=== PATIENT | female | born 1990 | race Caucasian/White ===

== ENCOUNTER 2019-09-16 18:51 | Emergency (ER) | payer BC ==
[~2019-09-16] VITALS: Ht 185.4 cm; Wt 99.6 kg
[2019-09-16] MEDS ORDERED: NITR100C2 (19:01)
[2019-09-16] MEDS ORDERED: CYCL-707 (19:01)
[2019-09-16] MEDS ORDERED: PHEN-593 (19:01)
[2019-09-16] MEDS ORDERED: PRED10TA2 (19:01)
[2019-09-16] MEDS ORDERED: METH1TAB40 (19:01)
[2019-09-16] MEDS ORDERED: NS 1,000 ML IV ONE (21:15)
[2019-09-16] MEDS ORDERED: MORPHINE 2 MG/ML 1ML VIAL (J2270) IV ONE (21:15)
[2019-09-16] MEDS ORDERED: ISOVUE-370 76% 100ML VIAL As Ordered ONE (21:51)
[2019-09-16 21:54] LABS: BASO % 0.3 % (0.0-1.0); EOS # 0.1 10^3/uL (0.0-0.5); EOS % 0.7 % (0.0-3.0); HEMATOCRIT 36.4 % (36.0-47.0); HEMOGLOBIN 11.8 g/dl (12.0-15.5); LYMPH # 1.7 10^3/uL (1.5-5.0); LYMPH % 14.2 % (24.0-44.0); MEAN CORPUSCULAR HEMOGLOBIN 29.4 pg (27.0-33.0); MEAN CORPUSCULAR HGB CONC 32.4 g/dl (32.0-36.5); MEAN CORPUSCULAR VOLUME 90.8 fl (80.0-96.0); MONO # 0.7 10^3/uL (0.0-0.8); MONO % 6.2 % (0.0-5.0); NEUTROPHILS # 9.2 10^3/uL (1.5-8.5); NEUTROPHILS % 78.3 % (36.0-66.0); PLATELET COUNT, AUTOMATED 282 10^3/uL (150-450); RED BLOOD COUNT 4.01 10^6/uL (4.00-5.40); WHITE BLOOD COUNT 11.7 10^3/uL (4.0-10.0)
[2019-09-16 22:12] LABS: ERYTHROCYTE SEDIMENTATION RATE 41 mm/hr (0-20)
--- NOTE | 2019-09-16 22:14 | REPVR ---
PROCEDURE INFORMATION: Exam: CT Pelvis With Contrast Exam date and time: 09/16/2019 9:59 PM Age: 28 years old Clinical indication: Condition or disease; Abscess; Rectal; Additional info: Rectal abscess, fistula? TECHNIQUE: Imaging protocol: Computed tomography images of the pelvis with intravenous contrast. Radiation optimization: All CT scans at this facility use at least one of these dose optimization techniques: automated exposure control; mA and/or kV adjustment per patient size (includes targeted exams where dose is matched to clinical indication); or iterative reconstruction. Contrast material: ISOVUE 370; Contrast volume: 100 ml; Contrast route: IV; COMPARISON: No relevant prior studies available. FINDINGS: Stomach and bowel: Visualized small bowel and colon are unremarkable. Appendix: No evidence of appendicitis. Intraperitoneal space: There is minimal fluid in the cul-de-sac most likely physiologic. Clinical correlation to exclude other causes of cul-de-sac fluid suggested. Lymph nodes: Unremarkable. No enlarged lymph nodes. Bladder: Normal. No mass. Reproductive: IUD located centrally within the uterus. Bones/joints: Unremarkable. No acute fracture. No dislocation. Soft tissues: Complex thick-walled cystic mass extending posteriorly from the 5 o'clock position of the left posterolateral rectal wall coursing along the medial aspect of the buttocks measuring 2.4 x 3.6 x 6.5 cm consistent with a dissecting perirectal abscess. Surrounding inflammation demonstrated in the adjacent soft tissues. IMPRESSION: Complex thick-walled cystic mass extending posteriorly from left posterolateral rectal wall coursing along the medial aspect of the buttocks measuring 2.4 x 3.6 x 6.5 cm consistent with a dissecting perirectal abscess. Electronically signed by: Kaden Lucas On 09/16/2019 22:13:53 PM
[2019-09-16] MEDS ORDERED: LIDOCAINE W/EPINEPHRINE 1% 20ML VIAL SC ONE (22:30)
[2019-09-16] MEDS ORDERED: CLEO300C2 PO (23:14)
[2019-09-16] MEDS ORDERED: HYDR-3713 PO (23:14)
[2019-09-16] MEDS ORDERED: CLINDAMYCIN 150MG CAPSULE PO ONE (23:15)
[2019-09-16] MEDS ORDERED: NORCO 5/325MG TABLET (BULK FOR ED) PO ONE (23:15)
[2019-09-16 23:51] VITALS: BP 112/61
--- NOTE | 2019-09-17 10:55 | ED PDOC ---
Post-Departure Follow-Up dr franco faxed formal report of ct pelvis for fu Jessica Sorenson MD September 17, 2019 10:55
== END 2019-09-16 23:57 | disposition home or self-care (01) ==
LOC: M ED 18:51
DX: K61.1 Rectal abscess (principal)
CPT/HCPCS: 10060; 72193; 80047; 83605; 84702; 85025; 85652; 86140; 87070; 87077; 87186; 96361; 96374; 99284; J2270; Q9967

== ENCOUNTER → 2019-10-01 | Outpatient (REF) | payer BC ==
[~2019-10-01] MED LIST: CLEO300C2 PO; CYCL-707; HYDR-3713 PO; METH1TAB40; NITR100C2; PHEN-593; PRED10TA2
== END ==
LOC: M SFHCWAGY 16:41
PROVIDERS: ATTEND Nurse Practitioner Family
DX: K61.1 Rectal abscess (principal)

== ENCOUNTER → 2020-01-16 | Outpatient (CLI) | payer BC ==
[~2020-01-16] MED LIST changes: +MIRE1IUD IU; +NAPR-885 PO
== END ==
LOC: M LABSMTC 08:52
PROVIDERS: ATTEND Anesthesiology
DX: Z01.812 Encounter for preprocedural laboratory examination (principal); Z20.828 Contact with and (suspected) exposure to other viral communicable diseases
CPT/HCPCS: C9803; U0003

== ENCOUNTER 2020-01-21 08:25 | Day surgery (SDC) | payer BC ==
[~2020-01-21] VITALS: Ht 185.4 cm; Wt 99.8 kg
[~2020-01-21 08:25] MED LIST changes: +LR 1,000 ML IV ONE; +metroNIDAZOLE 500 MG in IV 1 EA IV ONE
[2020-01-21] MEDS ORDERED: propofoL 200 MG/20 ML VIAL As Ordered ONE ×3 (09:23→10:46)
[2020-01-21] MEDS ORDERED: dexameTHASONE 4 MG/ML 1ML VIAL (J1100 PER 1MG) As Ordered ONE (09:23)
[2020-01-21] MEDS ORDERED: ONDANSETRON 4MG/2ML VIAL As Ordered ONE (09:23)
[2020-01-21] MEDS ORDERED: SUGAMMADEX SODIUM 500 MG/5 ML VIAL (BRIDION) As Ordered ONE (09:23)
[2020-01-21] MEDS ORDERED: KETOROLAC 60MG 2ML VIAL As Ordered ONE (09:23)
[2020-01-21] MEDS ORDERED: LIDOCAINE 2% 100MG/5ML SDV (FOR ANES.) As Ordered ONE (09:23)
[2020-01-21] MEDS ORDERED: fentaNYL 100 MCG/2 ML INJECTION (J3010) As Ordered ONE (09:24)
[2020-01-21] MEDS ORDERED: MIDAZOLAM INJ 2MG/2ML VIAL (J2250 PER 1MG) As Ordered ONE (09:24)
[2020-01-21] MEDS ORDERED: KETAMINE HCL 200 MG/20 ML VIAL As Ordered ONE ×2 (09:44→16:16)
[2020-01-21] MEDS ORDERED: LIDOCAINE 1% SDV 30ML VIAL As Ordered ONE (10:32)
[2020-01-21] MEDS ORDERED: BUPIVACAINE LIPOSOME/PF 1.3% 20ML VIAL (13.3MG/ML)(EXPAREL)(C9290 PER1MG) As Ordered ONE (10:32)
[2020-01-21] MEDS ORDERED: BUPIVACAINE HCL 0.25% 10ML VIAL As Ordered ONE (10:32)
[2020-01-21] MEDS ORDERED: ROCURONIUM BROMIDE 50 MG/5 ML VIAL As Ordered ONE (10:34)
[2020-01-21 12:55] VITALS: BP 122/79
--- NOTE | 2020-02-03 11:34 | ROOPDOC ---
[facility] Report Of Operation Report of Operation DATE OF PROCEDURE: 01/21/20 PREPROCEDURE DIAGNOSES: Perianal fistula. POSTPROCEDURE DIAGNOSES: Simple Perianal fistula. PROCEDURE: Examination under anesthesia, fistulotomy/marsupialization of fistula tract. SURGEON: Amandeep Pacheco MD [employer]: ANESTHESIA: Monitored anesthesia care with local anesthesia using a mixture of Exparel and 1/4% Marcaine. ESTIMATED BLOOD LOSS: Approximately 10 mL. COMPLICATIONS: None. REMARKS: Patient is a 29-year-old female who back in August 2019 had a perirectal abscess that was draining in the emergency room and subsequently was referred to me for follow-up and since then has been intermittently draining purulent material from the prior I&D site suspicious for a fistula. PROCEDURE NOTE: The external opening is at the patient's left anterolateral quadrant neuropathy about 2:00 with her on lithotomy. This is roughly about 2.5 cm away from the anal verge. There is a straight fistula tract that is superficial in location with an internal opening just at the or slightly even above the dentate line at the same plane.. DESCRIPTION OF PROCEDURE: Patient received a dose of Flagyl 500 mg IV for wound prophylaxis. She was brought to the operating room and placed on a prone jackknife position. Compression boots were placed on both lower extremities were DVT prophylaxis. M onitoring leads were placed. She was provided oxygen via facemask. Monitored anesthesia care and IV sedation then started. Her buttocks were taped apart to further expose the anal verge. The area was then prepped and draped in usual sterile fashion. We paused for a surgical timeout using both pre-incision safety checklist to verify correct patient, procedure site and additional clinical information prior to beginning the procedure The patient's prior I&D site was located. There is a small dimple sized opening left over. I could feel a short tract going into the anal verge that is mildly thickened in a straight course. When putting pressure on this area I could elucidate a small amount of purulent material coming from the external opening. There is no surrounding skin erythema nor subcutaneous induration. She has a small sized circumferential external hemorrhoid. No midline fissures noted. An anal retractor was placed to visualize the internal opening. Digital rectal examination was done. No masses palpated I followed the area of the subcutaneous thickening and was able to immediately identify a small opening internally. This actually was located just at the or slightly even above the anal verge. Using a fistula probe the external and internal tracts were connected. I infiltrated the area with 1% lidocaine mixed with 1/4% Marcaine. The fistula tract was opened up with Bovie cautery. This extends to roughly about a 3 cm opening. The fistula tract was curetted. The skin edges were marsupialized to the bottom of the fistula tract using 3-0 chromic in a running fashion. After making sure of adequate hemostasis a vessel denies cause was then used to cover up the wound with bulky gauze dressings In place with the postop surgical underwear. Patient tolerated the procedure well. She was promptly awakened and brought to recovery room in a stable condition. AMANDEEP PACHECO MD Feb 03, 2020 11:34
== END 2020-01-21 13:30 | disposition home or self-care (01) ==
LOC: M SDC 08:25
PROVIDERS: ATTEND Surgery
DX: K60.3 Anal fistula (principal); Z88.0 Allergy status to penicillin; K21.9 Gastro-esophageal reflux disease without esophagitis; Z79.899 Other long term (current) drug therapy
CPT/HCPCS: 46270; 81025; C9290; J1100; J1885; J2250; J2405; J3010

== ENCOUNTER 2020-03-09 21:19 | Emergency (ER) | payer BC ==
[~2020-03-09] VITALS: Ht 185.4 cm; Wt 102.8 kg
[~2020-03-09 21:19] MED LIST changes: -LR 1,000 ML IV ONE; -metroNIDAZOLE 500 MG in IV 1 EA IV ONE
[2020-03-09 21:20] VITALS: BP 112/67
[2020-03-09] MEDS ORDERED: IBUP80TA PO (21:34)
[2020-03-09] MEDS ORDERED: CIPRODEX OTIC (21:34)
[2020-03-09] MEDS ORDERED: ZITHTAB PO (21:34)
[2020-03-09] MEDS ORDERED: ACET-683 PO (21:34)
== END 2020-03-09 23:54 | disposition left against medical advice (07) ==
LOC: M ED 21:19
DX: Z53.21 Procedure and treatment not carried out due to patient leaving prior to being seen by health care provider (principal)

== ENCOUNTER → 2020-07-03 | Outpatient (REF) | payer BC ==
[~2020-07-03] MED LIST changes: +ACET-683 PO; +CIPR7.5D5 OTIC; +IBUP80TA PO; +METH-1164; -METH1TAB40; -PHEN-593; +PHEN1TAB73; +ZITHTAB PO
== END ==
LOC: M SFHCWAGY 15:01
PROVIDERS: ATTEND Nurse Practitioner Family
DX: Z12.4 Encounter for screening for malignant neoplasm of cervix (principal); Z01.419 Encounter for gynecological examination (general) (routine) without abnormal findings; Z77.9 Other contact with and (suspected) exposures hazardous to health

== ENCOUNTER → 2021-03-26 | Outpatient (CLI) | payer BC ==
--- NOTE | 2021-03-26 08:20 | REP ---
INDICATION: RUQ ABD PAIN COMPARISON: None. TECHNIQUE: Real time miner scale ultrasound examination using curved array transducer. FINDINGS: Liver and pancreas are normal in contour, size, and echogenicity without focal hepatic or pancreatic lesions identified. The gallbladder demonstrates gallstones without wall thickening or pericholecystic fluid. No biliary ductal dilatation is appreciated and the common bile duct measures 4.7 mm diameter. Right kidney is normal in reniform shape without hydronephrosis and measures 9.4 x 4.8 x 4.2 cm. Visualized abdominal aorta appears normal. No ascites in the visualized right upper quadrant. IMPRESSION: Cholelithiasis. <Electronically signed by Royce Fisher > 03/26/21 [id number]
== END ==
LOC: M RAD 06:50
PROVIDERS: ATTEND Family Medicine
DX: K80.20 Calculus of gallbladder without cholecystitis without obstruction (principal); R10.11 Right upper quadrant pain

== ENCOUNTER → 2021-05-18 | Outpatient (CLI) | payer BC | LOC: M LABSMTC 10:33 | PROVIDERS: ATTEND Anesthesiology | DX: Z01.812 Encounter for preprocedural laboratory examination (principal); Z20.822 Contact with and (suspected) exposure to COVID-19 ==

== ENCOUNTER 2021-05-23 06:12 | Day surgery (SDC) | payer BC ==
[~2021-05-23] VITALS: Ht 185.4 cm; Wt 89.4 kg
[~2021-05-23 06:12] MED LIST changes: +ADDE20CA3 PO; +CelecoXIB 400 MG CAP PO ONE; +INDOCYANINE GREEN 25MG VIAL (IC-GREEN) IV ONE; +LR 1,000 ML IV ONE; +LevoFLOXacin IV 500 MG in IV 1 EA IV ONE; +SERT50TA29 PO
[2021-05-23] MEDS ORDERED: fentaNYL 250 MCG/5 ML INJECTION (J3010) As Ordered ONE (06:59)
[2021-05-23] MEDS ORDERED: MIDAZOLAM INJ 2MG/2ML VIAL (J2250 PER 1MG) As Ordered ONE (06:59)
[2021-05-23] MEDS ORDERED: KETOROLAC 60MG 2ML VIAL As Ordered ONE (07:00)
[2021-05-23] MEDS ORDERED: ONDANSETRON 4MG/2ML VIAL As Ordered ONE (07:00)
[2021-05-23] MEDS ORDERED: SUGAMMADEX SODIUM 500 MG/5 ML VIAL (BRIDION) As Ordered ONE (07:00)
[2021-05-23] MEDS ORDERED: ePHEDrine SULFATE 25 MG/5 ML(5MG/ML) SYRINGE As Ordered ONE (07:00)
[2021-05-23] MEDS ORDERED: ROCURONIUM BROMIDE 50 MG/5 ML VIAL As Ordered ONE (07:00)
[2021-05-23] MEDS ORDERED: dexameTHASONE 4 MG/ML 1ML VIAL (J1100 PER 1MG) As Ordered ONE (07:00)
[2021-05-23] MEDS ORDERED: PHENYLephrine 500MCG 5ML (100MCG/ML) SYRINGE As Ordered ONE (07:00)
[2021-05-23] MEDS ORDERED: propofoL 200 MG/20 ML VIAL As Ordered ONE (07:06)
[2021-05-23] MEDS ORDERED: LIDOCAINE 2% 100MG/5ML SDV (FOR ANES.) As Ordered ONE (07:06)
[2021-05-23] MEDS ORDERED: BUPIVACAINE HCL 0.25% 30ML VIAL As Ordered ONE (07:13)
[2021-05-23] MEDS ORDERED: LIDOCAINE 1% SDV 30ML VIAL As Ordered ONE (07:13)
[2021-05-23] MEDS ORDERED: SCOPOLAMINE 1MG TRANSDERMAL PATCH TOP ONE (07:15)
[2021-05-23] MEDS ORDERED: ACETAMINOPHEN 1000MG 100ML IV BTL (OFIRMEV) (J0131 PER 10MG) As Ordered ONE (07:48)
[2021-05-23] MEDS ORDERED: ONDANSETRON 4MG/2ML VIAL IV PRN (09:20)
[2021-05-23] MEDS ORDERED: LR 1,000 ML IV SCH (09:20)
[2021-05-23] MEDS ORDERED: oxyCODONE 5MG TAB PO PRN (09:20)
[2021-05-23] MEDS ORDERED: HYDROMORPHONE HCL 0.5 MG/ 0.5 ML SYRINGE (J1170 PER 1) IV PRN (09:20)
[2021-05-23] MEDS ORDERED: fentaNYL 100 MCG/2 ML INJECTION (J3010) IV PRN (09:20)
[2021-05-23] MEDS ORDERED: NORCO, ANEXSIA 5/325MG TABLET (HYDROcodone/ACETAMINOPHEN) PO PRN ×2 (09:50)
[2021-05-23 12:04] VITALS: BP 112/62
[2021-05-23] MEDS ORDERED: KETOROLAC 30 MG/ML 1ML VIAL IV SCH (15:00)
== END 2021-05-23 12:40 | disposition home or self-care (01) ==
LOC: M SDC 06:12
PROVIDERS: ATTEND Surgery
DX: K80.10 Calculus of gallbladder with chronic cholecystitis without obstruction (principal); K21.9 Gastro-esophageal reflux disease without esophagitis; K60.4 Rectal fistula; F90.9 Attention-deficit hyperactivity disorder, unspecified type; J30.1 Allergic rhinitis due to pollen; Z88.0 Allergy status to penicillin; Z79.899 Other long term (current) drug therapy
CPT/HCPCS: 47563; 64486; 81025; 88304; J0131; J1100; J1885; J1956; J2250; J2370; J2405; J3010; S2900